=== PATIENT | female | born 2000 | race Caucasian/White ===

== ENCOUNTER 2023-06-27 04:52 | Emergency (ER) | payer MEDICAID ==
[~2023-06-27] VITALS: Ht 160 cm; Wt 54.0 kg
[2023-06-27 05:09] VITALS: O2SAT 98
[2023-06-27 08:49] LABS: CLARITY URINE TURBID (CLEAR); COLOR URINE RED (YELLOW); GLUCOSE URINE NEGATIVE (NEGATIVE); KETONES URINE NEGATIVE (NEGATIVE); LEUKOCYTE ESTERASE URINE 3+ (NEGATIVE); NITRITE URINE POSITIVE (NEGATIVE); OCCULT BLOOD URINE 2+ (NEGATIVE); PH URINE 5.5 (4.5-8.0); PROTEIN URINE 2+ (NEGATIVE)
[2023-06-27] MEDS ORDERED: CEPH500C2 MT (09:38)
[2023-06-27 09:41] LABS: RBC URINE TNTC /hpf (0-2); WBC URINE 50-100 /hpf (0-2)
[2023-06-27 09:42] LABS: SQUAMOUS EPITHELIAL CELL URINE NONE SEEN /lpf (RARE/1+)
[2023-06-27 09:46] LABS: BACTERIA URINE 2+
[2023-06-27 10:08] VITALS: BP 128/79; PULSE 80; RESP 17; TEMP 98.6
== END 2023-06-27 10:10 | disposition home or self-care (01) ==
LOC: ER 04:52
DX: N30.00 Acute cystitis without hematuria (principal)
CPT/HCPCS: 81003; 81025; 87077; 87186; 99283